=== PATIENT | female | born 1970 | race Caucasian/White ===

== ENCOUNTER → 2020-04-28 | Outpatient (CLI) | payer BC ==
--- NOTE | 2020-04-28 16:28 | RAD ---
Gastric Emptying Study Indication: Dizziness, nausea, GERD without esophagitis for 5 years Comparison: None Procedure: Serial static images are obtained over the stomach following oral administration 99 M tech netium sulfur colloid in a solid meal, and percentages of geometric mean retained uptake were calcula hilda at intervals post ingestion. Findings: The stomach empties normally into the small bowel without evidence of reflux in the area th e esophagus. The percentage of retained radiotracer material is as follows: 1 hour: 66% (normal range is 34.8 to 91%). 2 hour: 56% (normal range is 2.6 to 60%). 3 hour: 27% (normal range is 0.5 to 28%). 4 hour: 18% (normal range is 0 to 10%). The calculated gastric emptying T1/2 is 137 minutes. Normal reference is 60 minutes +/- 30. Impression: Abnormal gastric emptying study with abnormal retention after 4 hours. Electronically signed by: Tirso Mcdonnell MD (04/28/2020 4:25 PM) [id number]
== END ==
LOC: NM 07:58
PROVIDERS: ATTEND Physician Assistant Medical
DX: K21.9 Gastro-esophageal reflux disease without esophagitis (principal); R20.0 Anesthesia of skin; R42 Dizziness and giddiness
CPT/HCPCS: 78264; A9541